=== PATIENT | male | born 1985 | race Caucasian/White ===

== ENCOUNTER 2017-01-21 10:42 | Emergency (ER) | payer MEDICAID ==
[~2017-01-21] VITALS: Ht 167.6 cm; Wt 77.5 kg
[2017-01-21 10:49] VITALS: Ht 167.6 cm; Wt 77.5 kg
[2017-01-21] MEDS ORDERED: ASPIRIN 325 MG TAB PO STA (11:04)
[2017-01-21] MEDS ORDERED: KETOROLAC 30 MG INJ IV STA (11:11)
[2017-01-21 11:35] LABS: ADD SCAN DIFF NO
[2017-01-21 11:43] LABS: BASOPHILS % 0.5 % (0.0-2.0); EOSINOPHILS # 0.1 10^3/ul (0.0-0.5); HEMATOCRIT 45.1 % (42.0-52.0); HEMOGLOBIN 15.9 g/dl (14.0-18.0); LYMPHOCYTES # 1.8 10^3/ul (0.8-2.9); LYMPHOCYTES % 27.7 % (15.0-51.0); MEAN CORPUSCULAR HEMOGLOBIN 30.3 pg (29.0-33.0); MEAN CORPUSCULAR HGB CONC 35.3 g/dl (32.0-37.0); MEAN CORPUSCULAR VOLUME 86.1 fl (82.0-101.0); MEAN PLATELET VOLUME 9.1 fl (7.4-10.4); MONOCYTE # 0.7 10^3/ul (0.3-0.9); MONOCYTES % 10.4 % (0.0-11.0); NEUTROPHIL # 3.9 10^3/ul (1.6-7.5); NEUTROPHILS % 59.1 % (39.0-77.0); PLATELET COUNT 329 10^3/UL (140-415); RED BLOOD COUNT 5.24 10^6/ul (4.70-6.10); WHITE BLOOD COUNT 6.7 10^3/ul (4.8-10.8)
[2017-01-21 11:54] LABS: INR 0.89; PT RATIO 0.9
[2017-01-21 11:55] LABS: PARTIAL THROMBOPLASTIN TIME 27.2 Sec (25.0-35.0)
[2017-01-21 12:02] LABS: CHLORIDE 98 mmol/L (97-110)
[2017-01-21 12:03] LABS: POTASSIUM 3.7 mmol/L (3.5-5.1); SODIUM 138 mmol/L (135-144)
[2017-01-21 12:06] LABS: ANION GAP 17 (8-16); BLOOD UREA NITROGEN 13 mg/dl (7-20); CALCIUM 9.8 mg/dl (8.4-10.2); CARBON DIOXIDE 27 mmol/L (21-31); GLUCOSE 103 mg/dl (70-220)
[2017-01-21 12:07] LABS: CREATINE KINASE 197 IU/L (23-200)
[2017-01-21 12:21] LABS: CK-MB 2.73 ng/ml (0.0-2.4); TROPONIN-I < 0.012 ng/ml (0.00-0.12)
--- NOTE | 2017-01-21 13:10 | RADRPT ---
PROCEDURE: XR Chest. CLINICAL INDICATION: chest pain TECHNIQUE: Single frontal view of the chest was obtained COMPARISON: None FINDINGS: The heart and mediastinum are within normal limits. The lungs are clear. There is no pleural effusion or pneumothorax. RPTAT: AA IMPRESSION: No acute disease. .Obed Steen MD, Date Time Electronically viewed and signed by .Obed Steen MD, on 01/21/2017 13:09 .S/
[2017-01-21] MEDS ORDERED: LIDOCAINE/MYLANTA 40 ML BTL PO ONE (15:30)
[2017-01-21 16:14] LABS: CREATINE KINASE 162 IU/L (23-200)
[2017-01-21 16:24] VITALS: BP 128/83; PULSE 76; RESP 18
[2017-01-21 16:29] LABS: CK-MB 1.64 ng/ml (0.0-2.4); TROPONIN-I < 0.012 ng/ml (0.00-0.12)
[2017-01-21] MEDS ORDERED: NAPR-688 PO (16:29)
[2017-01-21] MEDS ORDERED: RANI150T9 PO (16:29)
--- NOTE | 2017-01-21 16:39 | ERD ---
ER Documentation Chief Complaint Date/Time DATE: 01/21/17 TIME: 16:32 Chief Complaint chest pain x 1 month worse since last night HPI This 31-year-old male presented for left-sided chest pain described as a sharp, burning pain that comes and goes began 1 month ago and felt it worse last night. Says it hurts worse when he lays on his left side is also made worse by palpation somewhat. He denies shortness of breath, nausea and vomiting. He has no history of medical problems. ROS All systems reviewed and are negative except as per history of present illness. Medications Home Meds Active Scripts Naproxen* (Naproxen*) 500 Mg Tablet, 500 MG PO BID Y for PAIN, #14 TAB Prov:GAUDENCIO HURST DO 01/21/17 Ranitidine Hcl* (Zantac*) 150 Mg Tablet, 150 MG PO BID Y for EPIGASTRIC PAIN, # 60 TAB Prov:GAUDENCIO HURST DO 01/21/17 Allergies Allergies: Coded Allergies: No Known Allergy (Unverified , 01/21/17) PMhx/Soc History of Surgery: No Anesthesia Reaction: No Hx Neurological Disorder: No Hx Respiratory Disorders: No Hx Cardiac Disorders: No Hx Psychiatric Problems: No Hx Miscellaneous Medical Probl: No Hx Alcohol Use: No Hx Substance Use: No Hx Tobacco Use: No Smoking Status: Never smoker Physical Exam Vitals Vital Signs Date Time Temp Pulse Resp B/P Pulse Ox O2 Delivery O2 Flow Rate FiO2 01/21/17 16:24 76 18 128/83 99 Room Air 01/21/17 12:06 Nasal Cannula 2 01/21/17 10:49 98.2 61 18 139/87 99 Physical Exam Const: [] No distress Head: Atraumatic Eyes: Normal Conjunctiva ENT: Normal External Ears, Nose and Mouth. Neck: Full range of motion..~ No meningismus. Resp: Clear to auscultation bilaterally Cardio: Regular rate and rhythm, no murmurs Chest wall: Tenderness to palpation over left costochondral junction. Abd: Soft, non tender, non distended. Normal bowel sounds Skin: No petechiae or rashes Back: No midline or flank tenderness Ext: No cyanosis, or edema Neur: Awake and alert and oriented 3, no focal deficit Psych: Normal Mood and Affect Result Diagram: 01/21/17 1120 01/21/17 1120 Results 24 hrs Laboratory Tests Test 01/21/17 11:20 01/21/17 15:45 White Blood Count 6.710^3/ul Red Blood Count 5.2410^6/ul Hemoglobin 15.9g/dl Hematocrit 45.1% Mean Corpuscular Volume 86.1fl Mean Corpuscular Hemoglobin 30.3pg Mean Corpuscular Hemoglobin Concent 35.3g/dl Red Cell Distribution Width 12.0% Platelet Count 11202^3/UL Mean Platelet Volume 9.1fl Neutrophils % 59.1% Lymphocytes % 27.7% Monocytes % 10.4% Eosinophils % 2.0% Basophils % 0.5% Nucleated Red Blood Cells % 0.0/100WBC Neutrophils # 3.910^3/ul Lymphocytes # 1.810^3/ul Monocytes # 0.710^3/ul Eosinophils # 0.110^3/ul Basophils # 0.010^3/ul Nucleated Red Blood Cells # 0.010^3/ul Prothrombin Time 12.0Sec Prothrombin Time Ratio 0.9 INR International Normalized Ratio 0.89 Activated Partial Thromboplast Time 27.2Sec Sodium Level 138mmol/L Potassium Level 3.7mmol/L Chloride Level 98mmol/L Carbon Dioxide Level 27mmol/L Anion Gap 17 Blood Urea Nitrogen 13mg/dl Creatinine 0.80mg/dl Glucose Level 103mg/dl Calcium Level 9.8mg/dl Creatine Kinase 197IU/L 162IU/L Creatine Kinase Index 1.4 1.0 Creatinine Kinase MB (Mass) 2.73ng/ml 1.64ng/ml Troponin I < 0.012ng/ml < 0.012ng/ml Current Medications Medications (Trade) Dose Ordered Sig/Lorenzo Route PRN Reason Start Time Stop Time Status Last Admin Dose Admin Aspirin (Aspirin) 325 mg ONCE STAT PO 01/21/17 11:04 01/21/17 11:05 DC 01/21/17 12:02 Ketorolac Tromethamine (Toradol) 30 mg ONCE STAT IV 01/21/17 11:11 01/21/17 11:12 DC 01/21/17 12:02 Miscellaneous Medication (Gi Cocktail (2)) 40 ml ONCE ONCE PO 01/21/17 15:30 01/21/17 15:31 DC 01/21/17 15:16 Procedures/MDM Low risk cardiac patient with reproducible left-sided chest pain. Initially thought to be costochondritis. Patient had been given aspirin because of chest pain also had a initial abnormal EKG not consistent with the patient's presentation. Had an EKG immediately repeated which did not show the abnormality seen in the first EKG. Toradol helped the patient's pain somewhat. Following GI cocktail the patient was completely pain-free. The pain was described as a burning pain I believe GERD is the most consistent with his symptoms. I doubt acute coronary syndrome Either way I am having him follow-up with his primary care doctor and providing him primary care follow-up as well as instructed him to get an outpatient echocardiogram and both verbal and written instructions. He agrees to do so. We did discharge her with both naproxen and Zantac. . EKG interpretation #1: Sinus bradycardia rate of 59, inverted T waves in leads III and aVF suspicious for inferior ischemia as well as T-wave inversions in the lateral leads. J-point notching ST elevation in lead V2 consistent with early repolarization. EKG interpretation #2: Normal sinus rhythm with normal respiratory variation, rate of 69, normal axis, no ST or T-wave changes concerning for acute ischemia. Chest x-ray interpretation: I see no acute process. I see no pulmonary edema, no abnormal cardiac contour, no bony abnormalities. Completely normal chest x- ray. Departure Diagnosis: Primary Impression: GERD (gastroesophageal reflux disease) Additional Impression: Chest pain Condition: Stable Patient Instructions: Costochondritis, Chest Pain, Uncertain Cause, Gerd (Adult ) Referrals: [facility] YOU HAVE RECEIVED A MEDICAL SCREENING EXAM AND THE RESULTS INDICATE THAT YOU DO NOT HAVE A CONDITION THAT REQUIRES URGENT TREATMENT IN THE EMERGENCY DEPARTMENT. FURTHER EVALUATION AND TREATMENT OF YOUR CONDITION CAN WAIT UNTIL YOU ARE SEEN IN YOUR DOCTORS OFFICE WITHIN THE NEXT 1-2 DAYS. IT IS YOUR RESPONSIBILITY TO MAKE AN APPOINTMENT FOR [facility]. IF YOU HAVE A PRIMARY DOCTOR --you should call your primary doctor and schedule an appointment IF YOU DO NOT HAVE A PRIMARY DOCTOR YOU CAN CALL OUR PHYSICIAN REFERRAL HOTLINE AT IF YOU CAN NOT AFFORD TO SEE A PHYSICIAN YOU CAN CHOSE FROM THE FOLLOWING [facility] [address] [facility]. [facility] [address] [facility] [address] [facility] [address] [facility] [facility] [address] [facility]. [facility] [address] [facility]. [facility]. [address] Additional Instructions: Llame al doctor MAANA y oliverio bubba DANIELA PARA DENTRO DE 2-3 HONG. Consigue un referral para un ECHOCARDIOGRAMA. Dgale a la secretaria que nosotros le instruimos hacer esta daniela.Avise o llame si becerra condicin se empeora antes de la daniela. Regresa aqui si peor o no mejor. GAUDENCIO HURST DO January 21, 2017 16:39
== END 2017-01-21 16:56 | disposition home or self-care (01) ==
LOC: E/R 10:42
DX: K21.9 Gastro-esophageal reflux disease without esophagitis (principal)
CPT/HCPCS: 71010; 80048; 82550; 82553; 84484; 85025; 85610; 85730; 93005; J1885; Z7610